=== PATIENT | male | born 1990 | race Caucasian/White ===

== ENCOUNTER 2024-08-03 21:10 | Emergency (ER) | payer MEDICAID ==
[~2024-08-03] VITALS: Ht 177.8 cm; Wt 69.8 kg
[2024-08-03] MEDS ORDERED: AMOX-100 PO (22:29)
[2024-08-03 22:33] VITALS: BP 126/66; PULSE 70; RESP 18; TEMP 98.6; O2SAT 99
== END 2024-08-03 22:34 | disposition home or self-care (01) ==
LOC: ER 21:11
DX: K02.9 Dental caries, unspecified (principal)
CPT/HCPCS: 99283

== ENCOUNTER 2024-08-04 15:32 | Emergency (ER) | payer MEDICAID ==
[~2024-08-04] VITALS: Ht 160 cm; Wt 68.1 kg
[~2024-08-04 15:32] MED LIST: AMOX-100 PO
[2024-08-04 15:36] VITALS: BP 133/72; PULSE 98; RESP 18; O2SAT 98
[2024-08-04] MEDS: buprenorphine/naloxone 2-0.5mg sublingual tablet SL ONE (17:10)
[2024-08-04 17:12] VITALS: TEMP 97.8
== END 2024-08-04 17:13 | disposition home or self-care (01) ==
LOC: ER 15:33
DX: F11.20 Opioid dependence, uncomplicated (principal); F41.9 Anxiety disorder, unspecified
CPT/HCPCS: 99283

== ENCOUNTER 2025-05-15 09:28 | Emergency (ER) | payer MEDICAID ==
[~2025-05-15] VITALS: Ht 180.3 cm; Wt 67.0 kg
[2025-05-15 09:37] VITALS: TEMP 97.4
--- NOTE | 2025-05-15 11:51 | Physician Documentation ---
History of Present Illness ~ Chief Complaint: Overdose Stated Complaint: NAUSEA Time Seen by MD: 09:37 Source: patient Mode of Arrival: EMS Exam Limitations: no limitations HPI 34-year-old male who states he was at the [employer] station when he smoked fentanyl. He reports he uses fentanyl regularly but today he must to use too much as he ended up having an accidental overdose. Someone at the gas station called 911 patient ended up getting Narcan 8 mg in route. His only complaint currently is is that he is nauseated. Medication Reconciliation Allergies: Coded Allergies: No Known Allergies (Unverified , 08/04/24) Past Medical History Past Medical History: No Pertinent History Past Surgical History: noncontributory Drug Use: none Lives In: Home Review of Systems All Other Systems at this time: Reviewed and Negative Physical Exam Vital Signs: Temperature: 97.4, Source: Oral, Heart Rate: 81, Respiratory Rate: 16, BP: 108/77, Pulse Oximetry: 98, Weight: 67.000 Oxygen Flow Rate: 0 Physical Exam General Appearance: Alert, WD/WN. NAD. HEENT: NCAT, PERRL, EOMI. Neck: Supple, trachea midline. Cardiovascular: RRR. No m/r/g. Lungs: CTAB. Breathing unlabored Extremities: Normal inspection. No edema. Skin: Warm/dry, normal color Neurological: Alert and oriented x4, normal gait. Psychiatric: Affect congruent with mood. Progress Results/Orders Results/Orders Completed Orders - VIKI WARD Prochlorperazine Inj (Compazine Inj) (05/15/25 10:15) Medications Received in ER Medications (Trade) Dose Ordered Sig/Guido Route PRN Reason Start Time Stop Time Status Last Admin Dose Admin (Compazine inj) 10 mg ONCE ONCE IV 05/15/25 10:15 05/15/25 10:16 DC 05/15/25 10:18 10 MG Vital Signs 05/15/25 05/15/25 05/15/25 05/15/25 09:29 09:37 09:41 11:26 Temp 97.4 97.4 Pulse 97 91 81 Resp 12 13 13 16 B/P (MAP) 122/84 122/84 (97) 108/77 (87) Pulse Ox 100 100 98 O2 Flow Rate 0 05/15/25 12:13 Pulse 74 Resp 16 B/P (MAP) 99/69 Pulse Ox 98 Medical Decision Making Additional information obtaine: N/A Findings n/a Differential Dx:Considerations: Include: Alcohol abuse, Anxiety, Bipolar disorder, Conversion disorder, Delirium, Depression, Drug Overdose-Accidental, Drug Overdose-Intentional, Encephalopathy, Hallucinations, Homicidal, Liver failure, Panic disorder, Personality disorder, Renal failure, Respiratory failure, Schizophrenia, Substance abuse, Suicidal attempt, Suidical gesture, Other Additional Comment MONITORED FOR 2.5HORUS PATIENT REMAINED STABLE NO VOMITING AND NAUSEA RESOLVED AFTER COMPAZINE Departure Time of Disposition: 11:50 Disposition: 01 HOME / SELF CARE / HOMELESS Impression: Primary Impression: Accidental fentanyl overdose Qualified Codes: T40.411A - Poisoning by fentanyl or fentanyl analogs, accidental (unintentional), initial encounter Condition: Stable Discharge Instructions: Opioid Overdose Additional Instructions: you are medically cleared for rehab which I would strongly recommend Referrals: NO PRIMARY CARE PROVIDER (PCP) Education Educated: Patient Educated regarding: diagnosis, treatment, need for follow up Signature Scribe Signature: x Attestation: VIKI Holland May 15, 2025 11:50
[2025-05-15 12:13] VITALS: BP 99/69; PULSE 74; RESP 16; O2SAT 98
== END 2025-05-15 12:13 | disposition home or self-care (01) ==
LOC: ER 09:28
DX: T40.411A Poisoning by fentanyl or fentanyl analogs, accidental (unintentional), initial encounter (principal); F11.90 Opioid use, unspecified, uncomplicated; F17.200 Nicotine dependence, unspecified, uncomplicated; Y92.89 Other specified places as the place of occurrence of the external cause
CPT/HCPCS: 96374; 99283; J0780